=== PATIENT | female | born 1965 | race Caucasian/White ===

== ENCOUNTER 2017-11-20 19:23 | Emergency (ER) | payer OTHER ==
[~2017-11-20] VITALS: Ht 172.7 cm; Wt 88.0 kg
[~2017-11-20 19:23] MED LIST: ACEASPCAF PO; ALBU90OI6 INH; ANTIDEPRESSANT; BUSP15 PO; CYCL10 PO; Esgic Tablet1 EACH PO; FLUO10 PO; HYDACE10B PO; IBUP800; IBUP800 PO; INHALER; LEVSOD100 PO; MELO7.5 PO; NAPR220; Norco 10-325 T1 EACH PO; Norco 5-325 Ta1 EACH PO; OXYACE5T PO; PROP10 PO; Prednisone20 MG PO; QUET100; QUET100 PO; QUET200 PO; SULTRIDS PO; SUMA25 PO; SUMA5NI; TRAM50 PO; TRAZ150T57 PO; Zithromax250 MG PO; Zofran Odt4 MG SL
[2017-11-20 19:57] LABS: Source, Urine Clean Catch
[2017-11-20 20:06] LABS: Bilirubin, Urine Neg (Neg); Blood, Urine Neg (Neg); Glucose Qualitative, Urine Neg (Neg); Ketones, Urine Neg (Neg); Leukocyte Esterase, Urine 2+ (Neg); Nitrite, Urine Neg (Neg); Protein, Urine Neg (Neg); Urobilinogen, Urine NORM (Normal)
[2017-11-20 20:13] LABS: BASOPHILS ABSOLUTE AUTO 0.03 K/mm3 (0.00-0.23); BASOPHILS PERCENT AUTO 1 % (0-2); EOSINOPHILS ABSOLUTE AUTO 0.15 K/mm3 (0.00-0.68); EOSINOPHILS PERCENT AUTO 3 % (0-6); Hematocrit 39.4 % (33.0-51.0); Hemoglobin 13.7 g/dL (11.5-16.0); IMMATURE GRAN ABSOLUTE AUTO 0.01 K/mm3 (0.00-0.10); IMMATURE GRAN PERCENT AUTO 0 % (0-1); LYMPHOCYTES ABSOLUTE AUTO 1.99 K/mm3 (0.84-5.20); LYMPHOCYTES PERCENT AUTO 41 % (21-46); MONOCYTES ABSOLUTE AUTO 0.24 K/mm3 (0.16-1.47); MONOCYTES PERCENT AUTO 5 % (4-13); Mean Corpuscular HGB 32.8 pg (26.0-34.0); Mean Corpuscular HGB Conc 34.8 g/dL (31.5-36.5); Mean Corpuscular Volume 94 fL (80-100); NEUTROPHILS ABSOLUTE AUTO 2.45 K/mm3 (1.96-9.15); NEUTROPHILS PERCENT AUTO 50 % (41-73); Platelet Count 154 K/mm3 (150-400); RDW Coefficient Variation 13.8 % (11.7-14.2); RDW Standard Deviation 46.7 fL (35.1-46.3); Red Blood Cell Count 4.18 M/mm3 (3.80-5.20); White Blood Cell Count 4.87 K/mm3 (4.00-11.30)
[2017-11-20 20:21] LABS: Appearance, Urine Clear (Clear); Color, Urine Yellow (P-Yellow)
[2017-11-20 20:23] LABS: Bacteria Few /hpf; Red Blood Cells, Urine 0-2 /hpf (0-2); Squamous Epithelial Cells Few /hpf (Few)
[2017-11-20 20:24] LABS: U Amphetamine Screen Not Detected; U Barbituate Screen Not Detected; U Benzodiazapine Screen Not Detected; U Buprenorphine Screen Not Detected; U Cannabinoids Screen Not Detected; U Cocaine Screen Not Detected; U Methadone Screen Not Detected; U Methamphetamine Screen Not Detected; U Opiates Screen Not Detected; U Oxycodone Screen Not Detected; U Phencyclidine Screen Not Detected; U Propoxyphene Screen Not Detected
[2017-11-20 20:37] LABS: Albumin, Blood 4.2 g/dL (3.4-5.0); Albumin/Globulin Ratio 1.1 (0.8-1.8); Bilirubin, Total 0.4 mg/dL (0.1-1.0); Bun/Creatinine Ratio 11.4 (12.0-20.0); Calcium, Blood 9.2 mg/dL (8.5-10.1); Creatinine, Blood 1.23 mg/dL (0.40-1.00); Globulin, Blood 3.7 g/dL (2.2-4.0); Potassium, Blood 3.1 mmol/L (3.5-5.5); Total Protein, Blood 7.9 g/dL (6.4-8.2)
[2017-11-20 20:49] LABS: Free Thyroxine 0.69 ng/dL (0.70-1.60)
[2017-11-20 20:54] LABS: Thyroid Stimulating Hormone 35.1 uIU/mL (0.360-4.800); Triiodothyronine, Free 2.25 pg/mL (2.18-3.98)
== END 2017-11-20 21:42 | disposition home or self-care (01) ==
LOC: ER 19:23
PROVIDERS: Emergency Medicine
DX: G45.9 Transient cerebral ischemic attack, unspecified (principal); Z79.899 Other long term (current) drug therapy; G43.909 Migraine, unspecified, not intractable, without status migrainosus; F17.200 Nicotine dependence, unspecified, uncomplicated
CPT/HCPCS: 36415; 70450; 71046; 80053; 81001; 84439; 84443; 84481; 85025; 87086; 93005; 93010; G0480

== ENCOUNTER → 2017-11-21 | Outpatient (CLI) | payer OTHER | LOC: LAB 10:20 → LAB SHORT 10:20 | DX: N39.0 Urinary tract infection, site not specified (principal) | CPT/HCPCS: 87086 ==

== ENCOUNTER 2018-02-23 09:19 | Day surgery (SDC) | payer OTHER ==
[~2018-02-23] VITALS: Ht 170.2 cm; Wt 82.1 kg
[~2018-02-23 09:19] MED LIST changes: +ALBU90OI INH; +BUDE6HFA INH
== END 2018-02-23 22:35 | disposition home or self-care (01) ==
LOC: ORSCMMR 09:19 → ORD 11:00 → ORSCMMR 11:00
PROVIDERS: Internal Medicine Gastroenterology
PROC: 0DB88ZX Excision of Small Intestine, Via Natural or Artificial Opening Endoscopic, Diagnostic (ICD-10-PCS; principal; 2018-02-23 11:00)
PROC: 0DB68ZX Excision of Stomach, Via Natural or Artificial Opening Endoscopic, Diagnostic (ICD-10-PCS; principal; 2018-02-23 11:00)
PROC: 0DB48ZX Excision of Esophagogastric Junction, Via Natural or Artificial Opening Endoscopic, Diagnostic (ICD-10-PCS; principal; 2018-02-23 11:00)
DX: R10.13 Epigastric pain (principal); K25.9 Gastric ulcer, unspecified as acute or chronic, without hemorrhage or perforation; K29.80 Duodenitis without bleeding; E03.9 Hypothyroidism, unspecified; F31.9 Bipolar disorder, unspecified; J44.9 Chronic obstructive pulmonary disease, unspecified; F17.210 Nicotine dependence, cigarettes, uncomplicated; Z79.899 Other long term (current) drug therapy
CPT/HCPCS: 88305; 88312; 88342; J7030

== ENCOUNTER 2019-10-05 11:29 | Emergency (ER) | payer OTHER ==
[~2019-10-05] VITALS: Ht 172.7 cm; Wt 72.6 kg
[2019-10-05] MEDS ORDERED: HYDR1TAB94 PO (12:09)
[2019-10-05] MEDS ORDERED: Prednisone20 MG PO (12:09)
[2019-10-05] MEDS ORDERED: CYCL10 PO (12:09)
== END 2019-10-05 14:35 | disposition home or self-care (01) ==
LOC: ER 11:29
DX: M54.40 Lumbago with sciatica, unspecified side (principal); G89.29 Other chronic pain; J45.909 Unspecified asthma, uncomplicated; F31.9 Bipolar disorder, unspecified; E03.9 Hypothyroidism, unspecified; F17.200 Nicotine dependence, unspecified, uncomplicated; Z79.899 Other long term (current) drug therapy
CPT/HCPCS: 72100; 99283-25

== ENCOUNTER → 2019-10-07 | Outpatient (CLI) | payer OTHER ==
[~2019-10-07] MED LIST changes: +HYDR1TAB94 PO
== END | disposition home or self-care (01) ==
LOC: LAB SHORT 16:57 → LAB EV 16:57
DX: E03.9 Hypothyroidism, unspecified (principal)
CPT/HCPCS: 84443